=== PATIENT | male | born 1955 | race Caucasian/White ===

== ENCOUNTER → 2016-11-03 | Day surgery (SDC) | payer MEDICARE, OTHER ==
[~2016-11-03] MED LIST: OMEPRAZOLE40 M1 PO; REGLAN10 MG PO; SIMVASTATIN40 MG PO; SYNTHROID112 MCG PO; [UNRECOGNIZED DRUG - REMARK]
--- NOTE | ~2016-11-03 | OR ---
Unit #: [id number] #: [id number] Patient: MELLISA CLARKE [id number] [address] [address] [id number] MR#: [id number] NAME: MELLISA CLARKE ROOM: Date of Procedure: 11/03/2016 Admission Date: 11/03/2016 Surgeon: Trey Strauss M.D. : 1955 Attending Physician: Trey Strauss M.D. Primary Care Physician: Scot White M.D. OPERATIVE REPORT PRIMARY CARE PHYSICIAN Scot White M.D. PREOPERATIVE DIAGNOSES Colorectal cancer screening. PROCEDURES PERFORMED Colonoscopy and polypectomy. POSTOPERATIVE DIAGNOSES 1. The patient had a single sessile polyp in the proximal ascending colon. This was about a centimeter in size. It was removed using snare polypectomy. 2. Two sessile polyps in the rectum, these were 5 and 7 mm each. Both were removed using snare polypectomy, retrieved and sent for histology. 3. Small internal hemorrhoids. 4. Rest of the examination up to cecum was normal. The quality of the prep was good. RECOMMENDATIONS 1. Follow up results of polyp histology. 2. Consider repeat colonoscopy in 5 years. SEDATION USED MAC. DESCRIPTION OF PROCEDURE Following detailed explanation of the potential risks and complications of a colonoscopy, namely perforation, bleeding, and complications related to sedation, the patient was brought to GI lab and laid in the left lateral decubitus position. A digital rectal examination was performed, which was normal. Lubricated tip of the Olympus video colonoscope was inserted through the anus and advanced under direct vision. The scope was advanced and passed up to sigmoid into descending colon. No diverticula were seen in this area. The scope tip was then navigated all the way up to cecum with visualization of the ileocecal valve and the appendiceal orifice. Preparation was good with good visualization and photodocumentation was obtained. Successive segments of the colonic mucosa were examined upon withdrawal. Single sessile polyps noted in the proximal ascending colon. This was about a centimeter in size. It was removed using snare polypectomy. Two additional polyps were noted in the rectum. These were 7 mm and 5 mm each. Both were removed using snare polypectomy. They were Unit #: [id number] #: [id number] Patient: MELLISA CLARKE retrieved and sent for histology. No additional polyps were noted. The patient did not have any diverticulosis, but did have small internal hemorrhoids at anal verge. The scope was then withdrawn. The patient returned to the recovery area. He tolerated the procedure without any postprocedure complications. Dictated by... Hilda Stanford/yocasta TD: 11/03/2016 14:30 JOB #: [id number] OPERATIVE REPORT Page 1 of 1 X Trey Strauss MD X PROCEDURE OPERATIVE NOTE
== END | disposition home or self-care (01) ==
LOC: COPS 10:24
DX: Z12.11 Encounter for screening for malignant neoplasm of colon (principal); K63.5 Polyp of colon; K62.1 Rectal polyp; K64.8 Other hemorrhoids; E03.9 Hypothyroidism, unspecified; F17.210 Nicotine dependence, cigarettes, uncomplicated; Z79.899 Other long term (current) drug therapy; Z98.890 Other specified postprocedural states
CPT/HCPCS: 88305